=== PATIENT | female | born 1990 | race African-American/Black ===

== ENCOUNTER 2021-04-14 14:06 | Emergency (ER) | payer BC, OTHER ==
[~2021-04-14] VITALS: Ht 162.6 cm; Wt 160.6 kg
[2021-04-14 14:33] LABS: URINE BILIRUBIN NEGATIVE (Negative); URINE BLOOD 3+ (Negative); URINE CLARITY CLEAR; URINE COLOR YELLOW; URINE GLUCOSE-RANDOM* NEGATIVE (Negative); URINE KETONES NEGATIVE (Negative); URINE LEUKOCYTES-REFLEX TRACE (Negative); URINE NITRITE-REFLEX NEGATIVE (Negative); URINE PROTEIN (DIPSTICK) NEGATIVE (Negative); URINE SPECIFIC GRAVITY 1.015 (1.005-1.035); URINE UROBILINOGEN 0.2 E.U./dl (0.2-1.0)
[2021-04-14 15:16] LABS: BACTERIA-REFLEX 1-9 Few /HPF (None Seen); CASTS None Seen /LPF (None Seen); CRYSTALS None Seen /LPF (None Seen); SQUAMOUS 0-3 Few /LPF (0-3); URINE RBC 3-10 Few /HPF (NONE SEEN); URINE WBC-REFLEX 0-5 Rare /HPF (0-5)
[2021-04-14 17:52] LABS: ABSOLUTE NEUTROPHILS 9.3 thou/uL (1.4-8.2); BASOPHILS 0.9 % (0.0-2.0); EOSINOPHILS 1.5 % (0.0-3.0); HEMATOCRIT 34.4 % (37.0-47.0); HEMOGLOBIN 10.8 gm/dL (12.0-15.0); LYMPHOCYTES 25.8 % (24.0-44.0); MCH 23.4 pg (26.0-34.0); MCHC 31.4 g/dL (28.0-37.0); MCV 74.7 fL (80.0-100.0); MONOCYTES 5.5 % (1.0-8.0); PLATELET COUNT 533 thou/uL (150-400); POLYS 66.3 % (36.0-66.0); RDW 16.3 % (10.5-14.5); WBC 14.1 thou/uL (4.0-11.0)
[2021-04-14 18:06] LABS: CALCIUM 9.5 mg/dL (8.5-10.1); CREATININE 1.1 mg/dL (0.6-1.0); POTASSIUM 3.8 mmol/L (3.5-5.1)
[2021-04-14 18:13] LABS: DIRECT BILIRUBIN < 0.1 mg/dL (<0.1-0.2); LIPASE 171 U/L (73-393); SGOT 10 U/L (15-37); SGPT 25 U/L (14-59); TOTAL BILIRUBIN 0.2 mg/dL (0.2-1.0); TOTAL PROTEIN 7.6 g/dL (6.4-8.2)
[2021-04-14] MEDS ORDERED: COMPAZINE10 MG PO (19:04)
[2021-04-14 19:20] VITALS: BP 137/83
[2021-04-16] MEDS ORDERED: DOXYCYCLINE 10100 M2 PO (11:18)
== END 2021-04-14 19:28 | disposition home or self-care (01) ==
LOC: ER 14:06
PROVIDERS: Emergency Medicine
DX: N93.8 Other specified abnormal uterine and vaginal bleeding (principal); Z20.822 Contact with and (suspected) exposure to COVID-19; R51.9 Headache, unspecified; R42 Dizziness and giddiness; J06.9 Acute upper respiratory infection, unspecified; Z88.7 Allergy status to serum and vaccine

== ENCOUNTER 2021-08-15 19:21 | Emergency (ER) | payer OTHER ==
[~2021-08-15 19:21] MED LIST: COMPAZINE10 MG PO; DOXYCYCLINE 10100 M2 PO
== END 2021-08-15 20:12 | disposition left against medical advice (07) ==
LOC: ER 19:21
DX: G43.909 Migraine, unspecified, not intractable, without status migrainosus (principal); Z79.899 Other long term (current) drug therapy; Z88.7 Allergy status to serum and vaccine